=== PATIENT | female | born 1970 ===

== ENCOUNTER 2021-09-17 00:01 | Emergency (ER) | payer OTHER ==
[~2021-09-17] VITALS: Ht 170.2 cm; Wt 76.7 kg
[~2021-09-17 00:01] MED LIST: BENADRYL25 MG PO; DEPAKOTE ER250 MG PO; GEODON20 MG PO; LITHIUM CARBON150 MG PO; [UNRECOGNIZED DRUG - OTHER]
[2021-09-17] MEDS ORDERED: CLONAZEPAM0.5 MG (00:47)
[2021-09-17] MEDS ORDERED: ZOLOFT50 MG (00:47)
[2021-09-17] MEDS ORDERED: MUCINEX DM ER1 EAC1 PO (03:54)
[2021-09-17] MEDS ORDERED: ACETAMINOPHEN650 M2 PO (03:54)
[2021-09-17] MEDS ORDERED: AZITHROMYCIN500 MG PO (03:54)
== END 2021-09-17 04:06 | disposition home or self-care (01) ==
LOC: ER 00:01
DX: J06.9 Acute upper respiratory infection, unspecified (principal); B34.9 Viral infection, unspecified; Z20.822 Contact with and (suspected) exposure to COVID-19